=== PATIENT | female | born 1980 | race Caucasian/White ===

== ENCOUNTER 2023-06-19 15:57 | Emergency (ER) | payer SELFPAY ==
[~2023-06-19] VITALS: Ht 157.5 cm; Wt 78.5 kg
[2023-06-19 16:16] VITALS: BP 122/75; PULSE 102; RESP 16; TEMP 98; O2SAT 96
[2023-06-19 17:09] LABS: BASOPHILS % (AUTO) 0.4 % (0.0-2.0); EOSINOPHILS # (AUTO) 0.2 K/uL (0-0.4); EOSINOPHILS % (AUTO) 3.1 % (0.0-4.0); HEMATOCRIT 38.6 % (36-48); LYMPHOCYTES % (AUTO) 25.7 % (20.5-51.1); MEAN CORPUSCULAR HEMOGLOBIN 28 pg (27-31); MEAN CORPUSCULAR HGB CONC 34 g/dL (33-37); MONOCYTES # (AUTO) 0.5 K/uL (0.8-1.0); MONOCYTES % (AUTO) 6.9 % (1.7-9.3); NEUTROPHILS # (AUTO) 5.1 K/uL (1.8-7.7); NEUTROPHILS % (AUTO) 63.9 % (42.2-75.2); PLATELET COUNT (AUTO) 249 K/uL (140-450); RED BLOOD CELL COUNT(AUTO) 4.71 MIL/uL (4.20-5.40); RED CELL DISTRIBUTION WIDTH 14.9 % (11.6-13.7)
[2023-06-19 17:27] LABS: ANION GAP 9.9 (8-16); CALCIUM 8.8 mg/dL (8.5-10.1); CARBON DIOXIDE 28.5 mmol/L (21-32); CREATININE 1.3 mg/dL (0.6-1.3); POTASSIUM 3.4 mmol/L (3.5-5.1)
[2023-06-19 17:31] LABS: ALBUMIN 3.7 g/dL (3.4-5.0); BILIRUBIN,DIRECT 0.1 mg/dL (0.0-0.3); TOTAL BILIRUBIN 0.5 mg/dL (0.0-1.0); TOTAL PROTEIN, SERUM 7.2 g/dL (6.4-8.2)
[2023-06-19] MEDS ORDERED: KETOROLAC 30 MG/ML VIAL IVP ONE (18:20)
[2023-06-19] MEDS: NACL 0.9% 1,000 ML IV ONE (18:41)
[2023-06-19] MEDS: METOCLOPRAMIDE 10 MG/2 ML INJ VIAL IVP ONE (18:48)
[2023-06-19] MEDS: KETOROLAC 30 MG/ML VIAL IM ONE (19:34)
[2023-06-19] MEDS ORDERED: NAPR-1704 PO (19:34)
== END 2023-06-19 19:49 | disposition home or self-care (01) ==
LOC: MED 15:57
DX: R51.9 Headache, unspecified (principal); Z88.2 Allergy status to sulfonamides; Z88.8 Allergy status to other drugs, medicaments and biological substances; Z79.899 Other long term (current) drug therapy
CPT/HCPCS: 36415; 70450; 70496; 70498; 80048; 80076; 81025; 85025; 96361; 96374; 96375; 99285; J1885; J2765; J7030; Q9967